=== PATIENT | male | born 1950 | race Caucasian/White ===

== ENCOUNTER 2021-10-31 22:20 | Observation (INO) | payer MEDICARE ==
[2021-10-31] MEDS ORDERED: MORPHINE SULFATE 4 MG INJ IV ONE (22:45)
[2021-10-31] MEDS ORDERED: Zofran 4 MG/2 ML VIAL IV ONE (22:45)
[2021-10-31] MEDS ORDERED: Sodium Chloride 0.9% 1000 ML 1,000 ML IV STA (22:45)
--- NOTE | 2021-10-31 22:48 | ERPHSYRPT ---
- History of Present Illness Time Seen by Provider: 10/31/21 22:22 Historian: patient Exam Limitations: no limitations Patient Subjective Stated Complaint: "my stomach hurts." Triage Nursing Assessment: acute onset periumbilical pain. Initial onset was in july. Recently began treatment for BPH. Reported three episodes of vomitin tonight. Last BM 10/30/21 Physician History: 71 years old male with history of peripheral vascular disease, tobacco abuse presented in the ER with chief complaint of lower abdominal pain sudden onset few hours ago with associated nausea and 3 episodes of nonprojectile, nonbilious vomiting. Patient reports having similar episodes for the last few months and have been seen in [place] where he is from, was found to have some prostate issues. Denies any fever or chills. Timing/Duration: hour(s) (4), constant, sudden, worse Activities at Onset: rest Quality: cramping, sharpness Abdominal Pain Onset Location: RLQ, LLQ, periumbilical, suprapubic Pain Radiation: no radiation Severity of Pain-Max: severe Severity of Pain-Current: moderate Modifying Factors: Improves With: nothing Associated Symptoms: nausea, vomiting Previous symptoms: same symptoms as today Allergies/Adverse Reactions: No Known Drug Allergies Allergy (Unverified 10/31/21 22:28) Home Medications: Aspirin 81 gm Chew [Baby Aspirin 81 mg Chew] 81 mg PO DAILY 10/31/21 [History] Finasteride 5 mg [Proscar 5 MG] 5 gm PO DAILY 10/31/21 [History] Hydrocodone/Acetaminophen [Hydrocodone-Acetamin 7.5-325] 1 tab PO TID PRN 10/31/21 [History] Lisinopril 10 mg [Zestril 10 MG] 10 mg PO DAILY 10/31/21 [History] Simvastatin 40 mg PO HS 10/31/21 [History] Tamsulosin HCl 0.4 mg [Flomax 0.4 MG] 0.4 mg PO DAILY 10/31/21 [History] Hx Tetanus, Diphtheria Vaccination/Date Given: Yes Hx Influenza Vaccination/Date Given: Yes Hx Pneumococcal Vaccination/Date Given: Yes Travel Risk - International Travel Have you traveled outside of the country in past 3 weeks: No - Coronavirus Screening Are you exhibiting any of the following symptoms?: No Close contact with a COVID-19 positive Pt in past 14-21 Days: No - Vaccine Status Have you recieved a Covid-19 vaccination: Yes Compliance Auditor: Moderna - Vaccination Dates Date of 2cond Vaccination (if applicable): 03/2021 - Review of Systems Constitutional: No Symptoms Eyes: No Symptoms Ears, Nose, & Throat: No Symptoms Respiratory: No Symptoms Cardiac: No Symptoms Abdominal/Gastrointestinal: Abdominal Pain, Nausea, Vomiting, No Diarrhea, No Constipation Genitourinary Symptoms: No Symptoms Musculoskeletal: Back Pain Skin: No Symptoms Neurological: No Symptoms Psychological: No Symptoms Endocrine: No Symptoms Hematologic/Lymphatic: No Symptoms Immunological/Allergic: No Symptoms - Past Medical History Pertinent Past Medical History: Yes Cardiac History: High Cholesterol, Hypertension, Peripheral Vascular Disease Male Reproductive Disorders: Prostate Problems - Past Surgical History Past Surgical History: Yes Cardiac: Vascular Surgery - Social History Smoking Status: Current every day smoker How long have you smoked: 0.5 Exposure to second hand smoke: No Drug Use: none Patient Lives Alone: Yes - Nursing Vital Signs Nursing Vital Signs: Initial Vital Signs Temperature 97.7 F 10/31/21 22:20 Pulse Rate 92 H 10/31/21 22:20 Respiratory Rate 18 10/31/21 22:20 Blood Pressure 162/86 10/31/21 22:20 O2 Sat by Pulse Oximetry 100 10/31/21 22:20 Pain Scale Pain Intensity 7 - Physical Exam General Appearance: no apparent distress, alert Eye Exam: PERRL/EOMI, eyes nml inspection Ears, Nose, Throat Exam: normal ENT inspection, TMs normal, pharynx normal Neck Exam: normal inspection, non-tender, supple, full range of motion Respiratory Exam: normal breath sounds, lungs clear Cardiovascular Exam: regular rate/rhythm, normal heart sounds Gastrointestinal/Abdomen Exam: soft, tenderness (Lower abdomen with diffuse guarding but no rebound tenderness), guarding, No normal bowel sounds Back Exam: normal inspection, normal range of motion, No CVA tenderness Extremity Exam: normal inspection, normal range of motion Neurologic Exam: alert, oriented x 3, cooperative Skin Exam: normal color SpO2 Interpretation: normal SpO2: 100 O2 Delivery: Room Air Ordered Tests: Active Orders 24 hr Category Date Time Status IV Insertion STAT Care 10/31/21 22:45 Active NPO (ED) STAT Care 10/31/21 22:45 Active ABDOMEN AND PELVIS W CONTRAST [CT] Stat Exams 10/31/21 22:46 Taken CBC W DIFF Stat Lab 10/31/21 22:57 Completed CMP Stat Lab 10/31/21 22:57 Completed LIPASE Stat Lab 10/31/21 22:57 Completed Lactic Acid Stat Lab 10/31/21 23:55 Completed UA W/RFX UR CULTURE Stat Lab 11/01/21 00:36 Completed Medication Summary Generic Name Dose Route Start Last Admin Trade Name Joesph PRN Reason Stop Dose Admin Sodium Chloride 1,000 mls @ 125 mls/hr 11/01/21 01:45 11/01/21 01:39 Sodium Chloride 0.9% 1000 Ml IV 12/01/21 01:44 125 mls/hr .Q8H TAYLER Administration Discontinued Medications Generic Name Dose Route Start Last Admin Trade Name Joesph PRN Reason Stop Dose Admin Hydromorphone HCl 1 mg 10/31/21 23:29 10/31/21 23:32 Hydromorphone 1 Mg/1ml Inj 1 Mg/Ml Syringe IV 10/31/21 23:30 1 mg STAT ONE Administration Hydromorphone HCl Confirm 10/31/21 23:31 Hydromorphone 1 Mg/1ml Inj 1 Mg/Ml Syringe Administered 10/31/21 23:32 Dose 1 mg .ROUTE .STK-MED ONE Hydromorphone HCl 1 mg 11/01/21 01:26 11/01/21 01:39 Hydromorphone 1 Mg/1ml Inj 1 Mg/Ml Syringe IV 11/01/21 01:27 1 mg STAT ONE Administration Hydromorphone HCl Confirm 11/01/21 01:35 Hydromorphone 1 Mg/1ml Inj 1 Mg/Ml Syringe Administered 11/01/21 01:36 Dose 1 mg .ROUTE .STK-MED ONE Sodium Chloride 1,000 mls @ 999 mls/hr 10/31/21 22:45 11/01/21 00:30 Sodium Chloride 0.9% 1000 Ml IV 10/31/21 23:45 Infused .Q1H1M STA Infusion Sodium Chloride Confirm 10/31/21 22:49 Sodium Chloride 0.9% 1000 Ml Administered 10/31/21 22:50 Dose 1,000 mls @ ud .ROUTE .STK-MED ONE Piperacillin Sod/Tazobactam 100 mls @ 200 mls/hr 11/01/21 00:51 11/01/21 00:59 Sod 3.375 gm/ Sodium Chloride IV 11/01/21 01:20 200 mls/hr STAT ONE Administration Sodium Chloride Confirm 11/01/21 00:55 Sodium Chloride 100ml Mini-Bag Plus Administered 11/01/21 00:56 Dose 100 mls @ ud IV .STK-MED ONE Sodium Chloride Confirm 11/01/21 01:35 Sodium Chloride 0.9% 1000 Ml Administered 11/01/21 01:36 Dose 1,000 mls @ ud .ROUTE .STK-MED ONE Morphine Sulfate 4 mg 10/31/21 22:45 10/31/21 22:51 Morphine Sulfate 4 Mg/Ml Injection IV 10/31/21 22:46 4 mg STAT ONE Administration Morphine Sulfate Confirm 10/31/21 22:49 Morphine Sulfate 4 Mg/Ml Injection Administered 10/31/21 22:50 Dose 4 mg .ROUTE .STK-MED ONE Ondansetron HCl 4 mg 10/31/21 22:45 10/31/21 22:51 Ondansetron Hcl 4 Mg/2 Ml Vial IV 10/31/21 22:46 4 mg STAT ONE Administration Ondansetron HCl Confirm 10/31/21 22:49 Ondansetron Hcl 4 Mg/2 Ml Vial Administered 10/31/21 22:50 Dose 4 mg .ROUTE .STK-MED ONE Piperacillin Sod/Tazobactam Sod Confirm 11/01/21 00:54 Piperacillin/Tazobactam Sodium 3.375 Gm Vial Administered 11/01/21 00:55 Dose 3.375 gm IV .STK-MED ONE Lab/Rad Data: Laboratory Result Diagrams 10/31/21 22:57 10/31/21 22:57 Laboratory Results 11/01/21 10/31/21 10/31/21 Range/Units 00:36 23:55 22:57 WBC (4.0-10.5) K/mm3 RBC (4.1-5.6) M/mm3 Hgb (12.5-18.0) gm/dl Hct (42-50) % MCV (78-100) fl MCH (26-32) pg MCHC (32-36) g/dl RDW (11.5-14.0) % Plt Count (150-450) K/mm3 MPV (7.5-11.0) fl Gran % (36.0-66.0) % Eos # (Auto) (0-0.5) Absolute Lymphs (auto) (1.0-4.6) Absolute Monos (auto) (0.0-1.3) Lymphocytes % (24.0-44.0) % Monocytes % (0.0-12.0) % Eosinophils % (0.00-5.0) % Basophils % (0.0-0.4) % Absolute Granulocytes (1.4-6.9) Basophils # (0-0.4) Sodium 138 (137-145) mmol/L Potassium 4.5 (3.5-5.1) mmol/L Chloride 104 (98-107) mmol/L Carbon Dioxide 21 L (22-30) mmol/L Anion Gap 16.8 H (5-15) MEQ/L BUN 23 H (9-20) mg/dL Creatinine 1.23 (0.66-1.25) mg/dL Estimated GFR > 60.0 ML/MIN Glucose 103 (74-106) mg/dL Lactic Acid 1.6 (0.4-2.0) Calcium 10.1 (8.4-10.2) mg/dL Total Bilirubin 0.70 (0.2-1.3) mg/dL AST 30 (17-59) U/L ALT 17 (0-50) U/L Alkaline Phosphatase 81 (38-126) U/L Serum Total Protein 8.0 (6.3-8.2) g/dL Albumin 4.9 (3.5-5.0) g/dL Lipase 270 (23-300) U/L Urine Color YELLOW (YELLOW) Urine Appearance CLEAR (CLEAR) Urine pH 5.0 (5-6) Ur Specific [place] 1.015 (1.005-1.025) Urine Protein NEGATIVE (Negative) Urine Ketones TRACE (NEGATIVE) Urine Blood SMALL (0-5) Stas/ul Urine Nitrite NEGATIVE (NEGATIVE) Urine Bilirubin NEGATIVE (NEGATIVE) Urine Urobilinogen NEGATIVE (0-1) mg/dL Ur Leukocyte Esterase NEGATIVE (NEGATIVE) Urine WBC (Auto) NONE (0-5) /HPF Urine RBC (Auto) 0-2 (0-2) /HPF U Epithel Cells (Auto) NONE (FEW) /HPF Urine Bacteria (Auto) NONE (NEGATIVE) /HPF Urine Mucus (Auto) SLIGHT (NEGATIVE) /HPF Urine Culture Reflexed NO (NO) Urine Glucose NEGATIVE (NEGATIVE) mg/dL Slides for Path Review 10/31/21 Range/Units 22:57 WBC 21.5 H (4.0-10.5) K/mm3 RBC 4.23 (4.1-5.6) M/mm3 Hgb 13.2 (12.5-18.0) gm/dl Hct 39.8 L (42-50) % MCV 94.1 (78-100) fl MCH 31.2 (26-32) pg MCHC 33.2 (32-36) g/dl RDW 13.8 (11.5-14.0) % Plt Count 242 (150-450) K/mm3 MPV 11.1 H (7.5-11.0) fl Gran % 81.2 H (36.0-66.0) % Eos # (Auto) 0.23 (0-0.5) Absolute Lymphs (auto) 2.23 (1.0-4.6) Absolute Monos (auto) 1.55 H (0.0-1.3) Lymphocytes % 10.4 L (24.0-44.0) % Monocytes % 7.2 (0.0-12.0) % Eosinophils % 1.1 (0.00-5.0) % Basophils % 0.1 (0.0-0.4) % Absolute Granulocytes 17.47 H (1.4-6.9) Basophils # 0.03 (0-0.4) Sodium (137-145) mmol/L Potassium (3.5-5.1) mmol/L Chloride (98-107) mmol/L Carbon Dioxide (22-30) mmol/L Anion Gap (5-15) MEQ/L BUN (9-20) mg/dL Creatinine (0.66-1.25) mg/dL Estimated GFR ML/MIN Glucose (74-106) mg/dL Lactic Acid (0.4-2.0) Calcium (8.4-10.2) mg/dL Total Bilirubin (0.2-1.3) mg/dL AST (17-59) U/L ALT (0-50) U/L Alkaline Phosphatase (38-126) U/L Serum Total Protein (6.3-8.2) g/dL Albumin (3.5-5.0) g/dL Lipase (23-300) U/L Urine Color (YELLOW) Urine Appearance (CLEAR) Urine pH (5-6) Ur Specific Pullman (1.005-1.025) Urine Protein (Negative) Urine Ketones (NEGATIVE) Urine Blood (0-5) Stas/ul Urine Nitrite (NEGATIVE) Urine Bilirubin (NEGATIVE) Urine Urobilinogen (0-1) mg/dL Ur Leukocyte Esterase (NEGATIVE) Urine WBC (Auto) (0-5) /HPF Urine RBC (Auto) (0-2) /HPF U Epithel Cells (Auto) (FEW) /HPF Urine Bacteria (Auto) (NEGATIVE) /HPF Urine Mucus (Auto) (NEGATIVE) /HPF Urine Culture Reflexed (NO) Urine Glucose (NEGATIVE) mg/dL Slides for Path Review YES - Progress Progress: improved, pain not gone completely, re-examined Progress Note: Is given fluid bolus and symptomatic treatment for pain. Has a white count of 21, grossly unremarkable chemistries. No UTI. Obtain CT with contrast which showed acute appendicitis. Given a dose of Zosyn. We will keep patient n.p.o. Discussed with Dr. Ronaldo Hernandez, reviewed history, work-up and patient is being admitted for surgical intervention only in the morning. Discussed with Dr. Black and patient is admitted in consultation with general surgery. 11/01/21 01:48 Will see patient in: hospital (observation) Counseled pt/family regarding: lab results, diagnosis, need for follow-up, rad results - Departure Departure Disposition: Observation Clinical Impression: Acute appendicitis Qualifiers: Acute appendicitis type: with localized peritonitis Appendicitis gangrene presence: without gangrene Appendicitis perforation presence: without perforation Appendicitis abscess presence: without abscess Qualified Code(s): K35.30 - Acute appendicitis with localized peritonitis, without perforation or gangrene Condition: Stable Critical Care Time: No Referrals: DOCTOR,NO FAMILY [Primary Care Provider] - Follow up/PCP as directed
[2021-10-31] MEDS ORDERED: MORPHINE SULFATE 4 MG INJ ONE (22:49)
[2021-10-31] MEDS ORDERED: Zofran 4 MG/2 ML VIAL ONE (22:49)
[2021-10-31] MEDS ORDERED: Sodium Chloride 0.9% 1000 ML 1,000 ML ONE (22:49)
[2021-10-31 23:01] LABS: Absolute Neutrophil Ct (ANC) 17.47 (1.4-6.9); BASOPHIL % 0.1 % (0.0-0.4); Basophil (Absolute #) 0.03 (0-0.4); Eosinophil % 1.1 % (0.00-5.0); Eosinophil (Absolute #) 0.23 (0-0.5); Hematocrit 39.8 % (42-50); Hemoglobin 13.2 gm/dl (12.5-18.0); Lymphocyte (Absolute #) 2.23 (1.0-4.6); Lymphocytes % 10.4 % (24.0-44.0); Mean Cell Volume 94.1 fl (78-100); Mean Corpuscular Hemoglobin 31.2 pg (26-32); Mean Corpuscular Hgb Concent. 33.2 g/dl (32-36); Mean Platelet Volume 11.1 fl (7.5-11.0); Monocyte (Absolute #) 1.55 (0.0-1.3); Monocytes % 7.2 % (0.0-12.0); Neutrophil % 81.2 % (36.0-66.0); Platelet Count 242 K/mm3 (150-450); Red Blood Count 4.23 M/mm3 (4.1-5.6); Red Cell Distribution Width 13.8 % (11.5-14.0); White Blood Count 21.5 K/mm3 (4.0-10.5)
[2021-10-31 23:11] LABS: ALBUMIN 4.9 g/dL (3.5-5.0); ALKALINE PHOSPHATASE 81 U/L (38-126); ANION GAP 16.8 MEQ/L (5-15); BLOOD UREA NITROGEN 23 mg/dL (9-20); CHLORIDE 104 mmol/L (98-107); Calcium 10.1 mg/dL (8.4-10.2); Carbon Dioxide 21 mmol/L (22-30); Creatinine 1 1.23 mg/dL (0.66-1.25); EST GLOMERULAR FILTRATION RATE > 60.0 ML/MIN; Glucose 103 mg/dL (74-106); LIPASE 270 U/L (23-300); Potassium 4.5 mmol/L (3.5-5.1); SGOT/AST 30 U/L (17-59); SGPT/ALT 17 U/L (0-50); SODIUM 138 mmol/L (137-145)
[2021-10-31] MEDS ORDERED: Hydromorphone 1 mg/ml Injection IV ONE (23:29)
[2021-10-31] MEDS ORDERED: Hydromorphone 1 mg/ml Injection ONE (23:31)
[2021-11-01 00:20] LABS: Slide Review 1 YES
[2021-11-01 00:34] LABS: Appearance CLEAR (CLEAR); Bilirubin NEGATIVE (NEGATIVE); Blood SMALL Ery/ul (0-5); Glucose NEGATIVE (NEGATIVE); Ketones TRACE (NEGATIVE); Leukocyte Esterase NEGATIVE (NEGATIVE); Mucus SLIGHT /HPF (NEGATIVE); Nitrite NEGATIVE (NEGATIVE); Protein,Urine Dip NEGATIVE (Negative); RBC 0-2 /HPF (0-2); Specific Gravity 1.015 (1.005-1.025); Urobilinogen NEGATIVE mg/dL (0-1)
[2021-11-01] MEDS ORDERED: Zosyn 3.375 GM Vial 3.375 GM in Sodium Chloride 100ML MINI-BAG PLUS 100 ML IV ONE (00:51)
[2021-11-01] MEDS ORDERED: Zosyn 3.375 GM Vial IV ONE ×2 (00:54→05:48)
[2021-11-01] MEDS ORDERED: Sodium Chloride 100ML MINI-BAG PLUS 100 ML IV ONE ×2 (00:55→05:48)
[2021-11-01] MEDS ORDERED: Hydromorphone 1 mg/ml Injection IV ONE (01:26)
[2021-11-01] MEDS ORDERED: Hydromorphone 1 mg/ml Injection ONE (01:35)
[2021-11-01] MEDS ORDERED: Sodium Chloride 0.9% 1000 ML 1,000 ML ONE (01:35)
[2021-11-01] MEDS: Sodium Chloride 0.9% 1000 ML 1,000 ML IV SCH ×2 (01:39→08:44)
[2021-11-01 02:41] LABS: INFLUENZA A NEGATIVE (NEGATIVE); INFLUENZA B NEGATIVE (NEGATIVE); RESPIRATORY SYNCTIAL VIRUS NEGATIVE (Negative); SARS-CoV-2 Xpert Express NEGATIVE (NEGATIVE)
[2021-11-01] MEDS ORDERED: DUONEB 0.5-3 MG/3 ml Neb IH PRN (03:46)
[2021-11-01] MEDS ORDERED: Zofran 4 MG/2 ML VIAL IV PRN (03:46)
[2021-11-01] MEDS: Zosyn 3.375 GM Vial 3.375 GM in Sodium Chloride 100ML MINI-BAG PLUS 100 ML IV SCH ×3 (06:02→17:00)
[2021-11-01 06:59] LABS: Absolute Neutrophil Ct (ANC) 10.33 (1.4-6.9); BASOPHIL % 0.3 % (0.0-0.4); Basophil (Absolute #) 0.04 (0-0.4); Eosinophil % 0.7 % (0.00-5.0); Hematocrit 32.8 % (42-50); Hemoglobin 10.6 gm/dl (12.5-18.0); Lymphocytes % 13.3 % (24.0-44.0); Mean Cell Volume 95.6 fl (78-100); Mean Corpuscular Hemoglobin 30.9 pg (26-32); Mean Corpuscular Hgb Concent. 32.3 g/dl (32-36); Mean Platelet Volume 10.2 fl (7.5-11.0); Monocyte (Absolute #) 1.23 (0.0-1.3); Monocytes % 9.1 % (0.0-12.0); Neutrophil % 76.6 % (36.0-66.0); Platelet Count 202 K/mm3 (150-450); Red Blood Count 3.43 M/mm3 (4.1-5.6); Red Cell Distribution Width 13.7 % (11.5-14.0); White Blood Count 13.5 K/mm3 (4.0-10.5)
[2021-11-01 07:20] LABS: ALBUMIN 3.4 g/dL (3.5-5.0); ALKALINE PHOSPHATASE 56 U/L (38-126); ANION GAP 8.8 MEQ/L (5-15); BLOOD UREA NITROGEN 18 mg/dL (9-20); CHLORIDE 111 mmol/L (98-107); Calcium 8.5 mg/dL (8.4-10.2); Carbon Dioxide 22 mmol/L (22-30); Creatinine 1 1.17 mg/dL (0.66-1.25); EST GLOMERULAR FILTRATION RATE > 60.0 ML/MIN; Glucose 97 mg/dL (74-106); Potassium 3.9 mmol/L (3.5-5.1); SGOT/AST 19 U/L (17-59); SGPT/ALT 11 U/L (0-50); SODIUM 138 mmol/L (137-145)
--- NOTE | 2021-11-01 07:53 | PCM.SSS ---
History of Present Illness - Chief Complaint Chief Complaint: Acute appendicitis History of Present Illness: is a 71 year old male who developed pain in the lower abdomen yesterday afternoon, progressively worsened and caused vomiting. Came to ER last night and CT revealed acute appendicitis. he has a history of hypertension and rheumatoid arthiritis with chronic pain. - Review of Systems Constitutional: No Fever, No Chills Respiratory: No Cough, No Short Of Breath Cardiac: No Chest Pain, No Edema, No Syncope Abdominal/Gastrointestinal: Abdominal Pain, Nausea, Vomiting, No Diarrhea, No Constipation, No Hematemesis, No Hematochezia Genitourinary Symptoms: No Dysuria Skin: No Rash Neurological: No Dizziness, No Focal Weakness, No Sensory Changes All Other Systems: Reviewed and Negative Medications & Allergies Home Medications: Home Medication List Aspirin 81 gm Chew [Baby Aspirin 81 mg Chew] 81 mg PO DAILY 10/31/21 [History Confirmed 11/01/21] Finasteride 5 mg [Proscar 5 MG] 5 mg PO DAILY 10/31/21 [History Confirmed 11/01/21] Hydrocodone/Acetaminophen [Hydrocodone-Acetamin 7.5-325] 7.5 tab PO TID PRN 10/31/21 [History Confirmed 11/01/21] Lisinopril 10 mg [Zestril 10 MG] 10 mg PO DAILY 10/31/21 [History Confirmed 11/01/21] Simvastatin 40 mg PO HS 10/31/21 [History Confirmed 11/01/21] Tamsulosin HCl 0.4 mg [Flomax 0.4 MG] 0.4 mg PO DAILY 10/31/21 [History Confirmed 11/01/21] Latanoprost/Pf [Latanoprost 0.005% Eye Drop] 1 drop OP HS 11/01/21 [History Confirmed 11/01/21] Timolol Maleate 0.5% Eye [Timoptic 0.5% 5 ml Ophthalmic] 1 drop OP DAILY 11/01/21 [History Confirmed 11/01/21] Allergies/Adverse Reactions: Allergies Allergy/AdvReac Type Severity Reaction Status Date / Time No Known Drug Allergies Allergy Unverified 10/31/21 22:28 - Past Medical History Past Medical History: Yes ENT History: Cataracts, Glaucoma Cardiac History: High Cholesterol, Hypertension, Peripheral Vascular Disease Respiratory History: No Pertinent History Musculoskelatal History: Rheumatoid Arthritis GI Medical History: Hernia History: No Pertinent History Pyscho-Social History: No Pertinent History Male Reproductive Disorders: Prostate Problems - Past Surgical History Past Surgical History: Yes Neuro Surgical History: No Pertinent History Cardiac History: Vascular Surgery Respiratory Surgery: No Pertinent History GI Surgical History: No Pertinent History Genitourinary Surgical Hx: No Pertinent History Musculskeletal Surgical Hx: No Pertinent History Male Surgical History: No Pertinent History - Social History Smoking Status: Current every day smoker How long have you smoked: 50 years Exposure to second hand smoke: Yes Alcohol: Daily Drug Use: none - Physical Exam Vital Signs: Vital Signs - 24 hr Temp Pulse Resp BP Pulse Ox 11/01/21 07:28 97.8 F 73 16 108/55 94 L 11/01/21 07:20 97.8 F 73 16 108/55 94 L 11/01/21 04:03 97.7 F 82 16 133/66 98 11/01/21 04:00 97.4 F 76 16 148/67 97 11/01/21 03:05 82 16 133/66 98 11/01/21 02:13 91 H 17 155/69 98 11/01/21 01:51 100 11/01/21 01:00 85 18 147/71 96 11/01/21 00:28 96 H 18 157/76 97 10/31/21 23:24 91 H 20 153/73 98 10/31/21 22:20 97.7 F 92 H 18 162/86 100 General Appearance: no apparent distress, alert Neurologic Exam: alert, oriented x 3, cooperative Respiratory Exam: normal breath sounds, lungs clear, No respiratory distress Cardiovascular Exam: regular rate/rhythm, normal heart sounds, normal peripheral pulses Gastrointestinal/Abdomen Exam: tenderness (lower abdomen), No distention, No mass, No guarding, No rebound Extremity Exam: normal inspection, normal range of motion, pelvis stable Skin Exam: normal color, warm, dry, No rash Results - Labs Lab/Micro Results: Lab Results-Last 24 Hours 10/31/21 10/31/21 10/31/21 Range/Units 22:57 22:57 23:55 WBC 21.5 H (4.0-10.5) K/mm3 RBC 4.23 (4.1-5.6) M/mm3 Hgb 13.2 (12.5-18.0) gm/dl Hct 39.8 L (42-50) % MCV 94.1 (78-100) fl MCH 31.2 (26-32) pg MCHC 33.2 (32-36) g/dl RDW 13.8 (11.5-14.0) % Plt Count 242 (150-450) K/mm3 MPV 11.1 H (7.5-11.0) fl Gran % 81.2 H (36.0-66.0) % Eos # (Auto) 0.23 (0-0.5) Absolute Lymphs (auto) 2.23 (1.0-4.6) Absolute Monos (auto) 1.55 H (0.0-1.3) Lymphocytes % 10.4 L (24.0-44.0) % Monocytes % 7.2 (0.0-12.0) % Eosinophils % 1.1 (0.00-5.0) % Basophils % 0.1 (0.0-0.4) % Absolute Granulocytes 17.47 H (1.4-6.9) Basophils # 0.03 (0-0.4) Sodium 138 (137-145) mmol/L Potassium 4.5 (3.5-5.1) mmol/L Chloride 104 (98-107) mmol/L Carbon Dioxide 21 L (22-30) mmol/L Anion Gap 16.8 H (5-15) MEQ/L BUN 23 H (9-20) mg/dL Creatinine 1.23 (0.66-1.25) mg/dL Estimated GFR > 60.0 ML/MIN Glucose 103 (74-106) mg/dL Lactic Acid 1.6 (0.4-2.0) Calcium 10.1 (8.4-10.2) mg/dL Total Bilirubin 0.70 (0.2-1.3) mg/dL AST 30 (17-59) U/L ALT 17 (0-50) U/L Alkaline Phosphatase 81 (38-126) U/L Serum Total Protein 8.0 (6.3-8.2) g/dL Albumin 4.9 (3.5-5.0) g/dL Lipase 270 (23-300) U/L Urine Color (YELLOW) Urine Appearance (CLEAR) Urine pH (5-6) Ur Specific [place] (1.005-1.025) Urine Protein (Negative) Urine Ketones (NEGATIVE) Urine Blood (0-5) Stas/ul Urine Nitrite (NEGATIVE) Urine Bilirubin (NEGATIVE) Urine Urobilinogen (0-1) mg/dL Ur Leukocyte Esterase (NEGATIVE) Urine WBC (Auto) (0-5) /HPF Urine RBC (Auto) (0-2) /HPF U Epithel Cells (Auto) (FEW) /HPF Urine Bacteria (Auto) (NEGATIVE) /HPF Urine Mucus (Auto) (NEGATIVE) /HPF Urine Culture Reflexed (NO) Urine Glucose (NEGATIVE) mg/dL Influenza Type A Ag (NEGATIVE) Influenza Type B Ag (NEGATIVE) RSV (PCR) (Negative) SARS-CoV-2 (PCR) (NEGATIVE) Slides for Path Review YES 11/01/21 11/01/21 11/01/21 Range/Units 00:36 01:55 06:43 WBC 13.5 H (4.0-10.5) K/mm3 RBC 3.43 L (4.1-5.6) M/mm3 Hgb 10.6 L (12.5-18.0) gm/dl Hct 32.8 L (42-50) % MCV 95.6 (78-100) fl MCH 30.9 (26-32) pg MCHC 32.3 (32-36) g/dl RDW 13.7 (11.5-14.0) % Plt Count 202 (150-450) K/mm3 MPV 10.2 (7.5-11.0) fl Gran % 76.6 H (36.0-66.0) % Eos # (Auto) 0.10 (0-0.5) Absolute Lymphs (auto) 1.80 (1.0-4.6) Absolute Monos (auto) 1.23 (0.0-1.3) Lymphocytes % 13.3 L (24.0-44.0) % Monocytes % 9.1 (0.0-12.0) % Eosinophils % 0.7 (0.00-5.0) % Basophils % 0.3 (0.0-0.4) % Absolute Granulocytes 10.33 H (1.4-6.9) Basophils # 0.04 (0-0.4) Sodium (137-145) mmol/L Potassium (3.5-5.1) mmol/L Chloride (98-107) mmol/L Carbon Dioxide (22-30) mmol/L Anion Gap (5-15) MEQ/L BUN (9-20) mg/dL Creatinine (0.66-1.25) mg/dL Estimated GFR ML/MIN Glucose (74-106) mg/dL Lactic Acid (0.4-2.0) Calcium (8.4-10.2) mg/dL Total Bilirubin (0.2-1.3) mg/dL AST (17-59) U/L ALT (0-50) U/L Alkaline Phosphatase (38-126) U/L Serum Total Protein (6.3-8.2) g/dL Albumin (3.5-5.0) g/dL Lipase (23-300) U/L Urine Color YELLOW (YELLOW) Urine Appearance CLEAR (CLEAR) Urine pH 5.0 (5-6) Ur Specific [place] 1.015 (1.005-1.025) Urine Protein NEGATIVE (Negative) Urine Ketones TRACE (NEGATIVE) Urine Blood SMALL (0-5) Stas/ul Urine Nitrite NEGATIVE (NEGATIVE) Urine Bilirubin NEGATIVE (NEGATIVE) Urine Urobilinogen NEGATIVE (0-1) mg/dL Ur Leukocyte Esterase NEGATIVE (NEGATIVE) Urine WBC (Auto) NONE (0-5) /HPF Urine RBC (Auto) 0-2 (0-2) /HPF U Epithel Cells (Auto) NONE (FEW) /HPF Urine Bacteria (Auto) NONE (NEGATIVE) /HPF Urine Mucus (Auto) SLIGHT (NEGATIVE) /HPF Urine Culture Reflexed NO (NO) Urine Glucose NEGATIVE (NEGATIVE) mg/dL Influenza Type A Ag NEGATIVE (NEGATIVE) Influenza Type B Ag NEGATIVE (NEGATIVE) RSV (PCR) NEGATIVE (Negative) SARS-CoV-2 (PCR) NEGATIVE (NEGATIVE) Slides for Path Review 11/01/21 Range/Units 06:43 WBC (4.0-10.5) K/mm3 RBC (4.1-5.6) M/mm3 Hgb (12.5-18.0) gm/dl Hct (42-50) % MCV (78-100) fl MCH (26-32) pg MCHC (32-36) g/dl RDW (11.5-14.0) % Plt Count (150-450) K/mm3 MPV (7.5-11.0) fl Gran % (36.0-66.0) % Eos # (Auto) (0-0.5) Absolute Lymphs (auto) (1.0-4.6) Absolute Monos (auto) (0.0-1.3) Lymphocytes % (24.0-44.0) % Monocytes % (0.0-12.0) % Eosinophils % (0.00-5.0) % Basophils % (0.0-0.4) % Absolute Granulocytes (1.4-6.9) Basophils # (0-0.4) Sodium 138 (137-145) mmol/L Potassium 3.9 (3.5-5.1) mmol/L Chloride 111 H (98-107) mmol/L Carbon Dioxide 22 (22-30) mmol/L Anion Gap 8.8 (5-15) MEQ/L BUN 18 (9-20) mg/dL Creatinine 1.17 (0.66-1.25) mg/dL Estimated GFR > 60.0 ML/MIN Glucose 97 (74-106) mg/dL Lactic Acid (0.4-2.0) Calcium 8.5 D (8.4-10.2) mg/dL Total Bilirubin 0.60 (0.2-1.3) mg/dL AST 19 (17-59) U/L ALT 11 (0-50) U/L Alkaline Phosphatase 56 (38-126) U/L Serum Total Protein 6.0 L (6.3-8.2) g/dL Albumin 3.4 L (3.5-5.0) g/dL Lipase (23-300) U/L Urine Color (YELLOW) Urine Appearance (CLEAR) Urine pH (5-6) Ur Specific [place] (1.005-1.025) Urine Protein (Negative) Urine Ketones (NEGATIVE) Urine Blood (0-5) Stas/ul Urine Nitrite (NEGATIVE) Urine Bilirubin (NEGATIVE) Urine Urobilinogen (0-1) mg/dL Ur Leukocyte Esterase (NEGATIVE) Urine WBC (Auto) (0-5) /HPF Urine RBC (Auto) (0-2) /HPF U Epithel Cells (Auto) (FEW) /HPF Urine Bacteria (Auto) (NEGATIVE) /HPF Urine Mucus (Auto) (NEGATIVE) /HPF Urine Culture Reflexed (NO) Urine Glucose (NEGATIVE) mg/dL Influenza Type A Ag (NEGATIVE) Influenza Type B Ag (NEGATIVE) RSV (PCR) (Negative) SARS-CoV-2 (PCR) (NEGATIVE) Slides for Path Review - Radiology Impressions Radiology Exams & Impressions: Radiology Procedures Category Date Time Status ABDOMEN AND PELVIS W CONTRAST [CT] Stat Exams 10/31/21 22:46 Taken Assessment/Plan (1) Acute appendicitis Current Visit: Yes Status: Acute Qualifiers: Acute appendicitis type: with localized peritonitis Appendicitis gangrene presence: without gangrene Appendicitis perforation presence: without perforation Appendicitis abscess presence: without abscess Qualified Code(s): K35.30 - Acute appendicitis with localized peritonitis, without perforation or gangrene Assessment & Plan: surgery consulted, will go for lap appy this am. NPO and on zosyn currently. Code(s): K35.80 - UNSPECIFIED ACUTE APPENDICITIS (2) Essential hypertension Current Visit: Yes Status: Acute Assessment & Plan: continue lisinopril home dose. Code(s): I10 - ESSENTIAL (PRIMARY) HYPERTENSION Hospital Summary - Vitals & Intake/Output Vital Signs: Vital Signs Temperature 97.8 F 11/01/21 07:28 Pulse Rate 73 11/01/21 07:28 Respiratory Rate 16 11/01/21 07:28 Blood Pressure 108/55 11/01/21 07:28 O2 Sat by Pulse Oximetry 94 L 11/01/21 07:28 Intake & Output: Intake & Output 10/29/21 10/30/21 10/31/21 11/01/21 11:59 11:59 11:59 11:59 Output Total 450 Balance -450 Weight 65.7 kg - Lab Result Diagrams: 11/01/21 06:43 11/01/21 06:43 Lab Results-Last 24 Hrs: Lab Results-Last 24 Hours 10/31/21 10/31/21 10/31/21 Range/Units 22:57 22:57 23:55 WBC 21.5 H (4.0-10.5) K/mm3 RBC 4.23 (4.1-5.6) M/mm3 Hgb 13.2 (12.5-18.0) gm/dl Hct 39.8 L (42-50) % MCV 94.1 (78-100) fl MCH 31.2 (26-32) pg MCHC 33.2 (32-36) g/dl RDW 13.8 (11.5-14.0) % Plt Count 242 (150-450) K/mm3 MPV 11.1 H (7.5-11.0) fl Gran % 81.2 H (36.0-66.0) % Eos # (Auto) 0.23 (0-0.5) Absolute Lymphs (auto) 2.23 (1.0-4.6) Absolute Monos (auto) 1.55 H (0.0-1.3) Lymphocytes % 10.4 L (24.0-44.0) % Monocytes % 7.2 (0.0-12.0) % Eosinophils % 1.1 (0.00-5.0) % Basophils % 0.1 (0.0-0.4) % Absolute Granulocytes 17.47 H (1.4-6.9) Basophils # 0.03 (0-0.4) Sodium 138 (137-145) mmol/L Potassium 4.5 (3.5-5.1) mmol/L Chloride 104 (98-107) mmol/L Carbon Dioxide 21 L (22-30) mmol/L Anion Gap 16.8 H (5-15) MEQ/L BUN 23 H (9-20) mg/dL Creatinine 1.23 (0.66-1.25) mg/dL Estimated GFR > 60.0 ML/MIN Glucose 103 (74-106) mg/dL Lactic Acid 1.6 (0.4-2.0) Calcium 10.1 (8.4-10.2) mg/dL Total Bilirubin 0.70 (0.2-1.3) mg/dL AST 30 (17-59) U/L ALT 17 (0-50) U/L Alkaline Phosphatase 81 (38-126) U/L Serum Total Protein 8.0 (6.3-8.2) g/dL Albumin 4.9 (3.5-5.0) g/dL Lipase 270 (23-300) U/L Urine Color (YELLOW) Urine Appearance (CLEAR) Urine pH (5-6) Ur Specific [place] (1.005-1.025) Urine Protein (Negative) Urine Ketones (NEGATIVE) Urine Blood (0-5) Stas/ul Urine Nitrite (NEGATIVE) Urine Bilirubin (NEGATIVE) Urine Urobilinogen (0-1) mg/dL Ur Leukocyte Esterase (NEGATIVE) Urine WBC (Auto) (0-5) /HPF Urine RBC (Auto) (0-2) /HPF U Epithel Cells (Auto) (FEW) /HPF Urine Bacteria (Auto) (NEGATIVE) /HPF Urine Mucus (Auto) (NEGATIVE) /HPF Urine Culture Reflexed (NO) Urine Glucose (NEGATIVE) mg/dL Influenza Type A Ag (NEGATIVE) Influenza Type B Ag (NEGATIVE) RSV (PCR) (Negative) SARS-CoV-2 (PCR) (NEGATIVE) Slides for Path Review YES 11/01/21 11/01/21 11/01/21 Range/Units 00:36 01:55 06:43 WBC 13.5 H (4.0-10.5) K/mm3 RBC 3.43 L (4.1-5.6) M/mm3 Hgb 10.6 L (12.5-18.0) gm/dl Hct 32.8 L (42-50) % MCV 95.6 (78-100) fl MCH 30.9 (26-32) pg MCHC 32.3 (32-36) g/dl RDW 13.7 (11.5-14.0) % Plt Count 202 (150-450) K/mm3 MPV 10.2 (7.5-11.0) fl Gran % 76.6 H (36.0-66.0) % Eos # (Auto) 0.10 (0-0.5) Absolute Lymphs (auto) 1.80 (1.0-4.6) Absolute Monos (auto) 1.23 (0.0-1.3) Lymphocytes % 13.3 L (24.0-44.0) % Monocytes % 9.1 (0.0-12.0) % Eosinophils % 0.7 (0.00-5.0) % Basophils % 0.3 (0.0-0.4) % Absolute Granulocytes 10.33 H (1.4-6.9) Basophils # 0.04 (0-0.4) Sodium (137-145) mmol/L Potassium (3.5-5.1) mmol/L Chloride (98-107) mmol/L Carbon Dioxide (22-30) mmol/L Anion Gap (5-15) MEQ/L BUN (9-20) mg/dL Creatinine (0.66-1.25) mg/dL Estimated GFR ML/MIN Glucose (74-106) mg/dL Lactic Acid (0.4-2.0) Calcium (8.4-10.2) mg/dL Total Bilirubin (0.2-1.3) mg/dL AST (17-59) U/L ALT (0-50) U/L Alkaline Phosphatase (38-126) U/L Serum Total Protein (6.3-8.2) g/dL Albumin (3.5-5.0) g/dL Lipase (23-300) U/L Urine Color YELLOW (YELLOW) Urine Appearance CLEAR (CLEAR) Urine pH 5.0 (5-6) Ur Specific [place] 1.015 (1.005-1.025) Urine Protein NEGATIVE (Negative) Urine Ketones TRACE (NEGATIVE) Urine Blood SMALL (0-5) Stas/ul Urine Nitrite NEGATIVE (NEGATIVE) Urine Bilirubin NEGATIVE (NEGATIVE) Urine Urobilinogen NEGATIVE (0-1) mg/dL Ur Leukocyte Esterase NEGATIVE (NEGATIVE) Urine WBC (Auto) NONE (0-5) /HPF Urine RBC (Auto) 0-2 (0-2) /HPF U Epithel Cells (Auto) NONE (FEW) /HPF Urine Bacteria (Auto) NONE (NEGATIVE) /HPF Urine Mucus (Auto) SLIGHT (NEGATIVE) /HPF Urine Culture Reflexed NO (NO) Urine Glucose NEGATIVE (NEGATIVE) mg/dL Influenza Type A Ag NEGATIVE (NEGATIVE) Influenza Type B Ag NEGATIVE (NEGATIVE) RSV (PCR) NEGATIVE (Negative) SARS-CoV-2 (PCR) NEGATIVE (NEGATIVE) Slides for Path Review 11/01/21 Range/Units 06:43 WBC (4.0-10.5) K/mm3 RBC (4.1-5.6) M/mm3 Hgb (12.5-18.0) gm/dl Hct (42-50) % MCV (78-100) fl MCH (26-32) pg MCHC (32-36) g/dl RDW (11.5-14.0) % Plt Count (150-450) K/mm3 MPV (7.5-11.0) fl Gran % (36.0-66.0) % Eos # (Auto) (0-0.5) Absolute Lymphs (auto) (1.0-4.6) Absolute Monos (auto) (0.0-1.3) Lymphocytes % (24.0-44.0) % Monocytes % (0.0-12.0) % Eosinophils % (0.00-5.0) % Basophils % (0.0-0.4) % Absolute Granulocytes (1.4-6.9) Basophils # (0-0.4) Sodium 138 (137-145) mmol/L Potassium 3.9 (3.5-5.1) mmol/L Chloride 111 H (98-107) mmol/L Carbon Dioxide 22 (22-30) mmol/L Anion Gap 8.8 (5-15) MEQ/L BUN 18 (9-20) mg/dL Creatinine 1.17 (0.66-1.25) mg/dL Estimated GFR > 60.0 ML/MIN Glucose 97 (74-106) mg/dL Lactic Acid (0.4-2.0) Calcium 8.5 D (8.4-10.2) mg/dL Total Bilirubin 0.60 (0.2-1.3) mg/dL AST 19 (17-59) U/L ALT 11 (0-50) U/L Alkaline Phosphatase 56 (38-126) U/L Serum Total Protein 6.0 L (6.3-8.2) g/dL Albumin 3.4 L (3.5-5.0) g/dL Lipase (23-300) U/L Urine Color (YELLOW) Urine Appearance (CLEAR) Urine pH (5-6) Ur Specific [place] (1.005-1.025) Urine Protein (Negative) Urine Ketones (NEGATIVE) Urine Blood (0-5) Stas/ul Urine Nitrite (NEGATIVE) Urine Bilirubin (NEGATIVE) Urine Urobilinogen (0-1) mg/dL Ur Leukocyte Esterase (NEGATIVE) Urine WBC (Auto) (0-5) /HPF Urine RBC (Auto) (0-2) /HPF U Epithel Cells (Auto) (FEW) /HPF Urine Bacteria (Auto) (NEGATIVE) /HPF Urine Mucus (Auto) (NEGATIVE) /HPF Urine Culture Reflexed (NO) Urine Glucose (NEGATIVE) mg/dL Influenza Type A Ag (NEGATIVE) Influenza Type B Ag (NEGATIVE) RSV (PCR) (Negative) SARS-CoV-2 (PCR) (NEGATIVE) Slides for Path Review - Radiology Exams Ordered Rad Exams-Entire Visit: Radiology Procedures Category Date Time Status ABDOMEN AND PELVIS W CONTRAST [CT] Stat Exams 10/31/21 22:46 Taken - Discharge Disposition: Home, Self-Care Condition: Stable Prescriptions: Continue Simvastatin 40 mg PO HS Tamsulosin HCl 0.4 mg [Flomax 0.4 MG] 0.4 mg PO DAILY Aspirin 81 gm Chew [Baby Aspirin 81 mg Chew] 81 mg PO DAILY Lisinopril 10 mg [Zestril 10 MG] 10 mg PO DAILY Finasteride 5 mg [Proscar 5 MG] 5 mg PO DAILY Hydrocodone/Acetaminophen [Hydrocodone-Acetamin 7.5-325] 7.5 tab PO TID PRN PRN Reason: Pain Timolol Maleate 0.5% Eye [Timoptic 0.5% 5 ml Ophthalmic] 1 drop OP DAILY Latanoprost/Pf [Latanoprost 0.005% Eye Drop] 1 drop OP HS Follow up with: DOCTOR,NO FAMILY [Primary Care Provider] -
--- NOTE | 2021-11-01 08:12 | XRAY ---
Indication: Abdomen pain, nausea, and vomiting. Multiple contiguous axial images obtained through the abdomen and pelvis using 80 cc Isovue 370 contrast. Comparison: None Lung bases demonstrates bibasilar subsegmental atelectasis/scarring. No infiltrate or effusion. Heart not enlarged. Noncontrasted stomach and bowel loops appear nonobstructed. Appendix appears prominent up to 11 mm in diameter with minimal periappendiceal stranding favoring acute appendicitis. No free fluid/air. Right kidney demonstrates 2 cysts, largest upper pole measuring 4.5 cm. Markedly distended urinary bladder concerning for outlet obstruction versus neurogenic bladder. Tiny splenic calcified granulomas. Remaining liver, gallbladder, pancreas, spleen adrenal glands, kidneys, ureters, and bladder are unremarkable. Heavy scattered vascular calcifications without AAA. Osseous structures intact with mild/moderate degenerative changes throughout the spine. Mild double curvature scoliosis. Impression: 1. CT findings as detailed favoring acute appendicitis. No complications. 2. Distended urinary bladder. Rule out outlet obstruction versus neurogenic bladder. 3. Incidental right renal cysts, chronic bony findings, and old granulomatous disease. Comment: Preliminary interpretation made by [facility]. No critical discrepancy.
[2021-11-01] MEDS: PROTONIX 40 MG IV IV SCH (08:44)
[2021-11-01] MEDS: Hydromorphone 1 mg/ml Injection IV PRN ×2 (08:48→13:41)
[2021-11-01] MEDS ORDERED: MEFOXIN 2 GM PREMIX** 2 GM/50 ML ML IV SCH (09:00)
[2021-11-01] MEDS ORDERED: Sodium Chloride 0.9% 1000 ML 1,000 ML IV SCH (09:00)
[2021-11-01] MEDS: Flomax 0.4 MG PO SCH ×2 (09:11→12:24)
[2021-11-01] MEDS: Zestril 10 MG PO SCH ×2 (09:11→12:24)
[2021-11-01] MEDS: Proscar 5 MG PO SCH (09:11)
[2021-11-01] MEDS ORDERED: MEDICATION INTERVENTION MC SCH (09:15)
[2021-11-01] MEDS ORDERED: Lactated Ringers 1,000 ML IV SCH ×2 (09:30→13:00)
[2021-11-01] MEDS ORDERED: TIMOPTIC 0.5% 5 ML OPHTHALMIC OP SCH (10:00)
[2021-11-01] MEDS ORDERED: Sensorcaine 0.25% 10 ML ONE (10:06)
[2021-11-01] MEDS ORDERED: Versed 2 MG/2 ML Injection ONE (10:30)
[2021-11-01] MEDS ORDERED: SUBLIMAZE 250 MCG/5 ML ONE (10:30)
[2021-11-01] MEDS ORDERED: Quelicin Fliptop 200 MG/10 ML ONE (10:31)
[2021-11-01] MEDS ORDERED: Zemuron 100 MG/10 ML ONE (10:31)
[2021-11-01] MEDS ORDERED: DIPRIVAN 200 MG/20 ML IV ONE (10:31)
[2021-11-01] MEDS ORDERED: Zofran 4 MG/2 ML VIAL ONE (11:19)
[2021-11-01] MEDS ORDERED: BRIDION 200MG/2ML IV ONE (11:20)
[2021-11-01] MEDS ORDERED: DUONEB 0.5-3 MG/3 ml Neb IH ONE (11:40)
[2021-11-01] MEDS ORDERED: SUBLIMAZE 100 MCG/2 ML ONE (11:43)
[2021-11-01] MEDS ORDERED: Lactated Ringers 1,000 ML IV ONE (11:56)
[2021-11-01] MEDS ORDERED: TORAdol 30 mg Injection IV ONE (12:21)
[2021-11-01] MEDS ORDERED: TYLENOL 325 MG PO PRN (12:51)
[2021-11-01] MEDS ORDERED: MORPHINE SULFATE 4 MG INJ IV PRN (12:52)
[2021-11-01] MEDS ORDERED: FEVERALL 650 MG RC PRN (12:52)
[2021-11-01] MEDS ORDERED: Zofran 4 MG/2 ML VIAL IVIM PRN (13:00)
[2021-11-01] MEDS: TIMOPTIC 0.5% 5 ML OPHTHALMIC OP SCH (13:59)
[2021-11-01] MEDS: NORCO 5/325 MG PO PRN ×2 (16:10→20:41)
[2021-11-01] MEDS ORDERED: ZOCOR 20MG PO SCH (22:00)
[2021-11-01] MEDS ORDERED: NON-FORMULARY ITEM (Latanoprost/Pf [Latanoprost 0.005% Eye Drop] 7.5 ML Drops) OP SCH (22:00)
[2021-11-01] MEDS ORDERED: Xalatan OP SCH (22:00)
[2021-11-01] MEDS ORDERED: NON-FORMULARY ITEM (Simvastatin [Simvastatin] 40 MG Tablet) PO SCH (22:00)
[2021-11-02] MEDS: Zosyn 3.375 GM Vial 3.375 GM in Sodium Chloride 100ML MINI-BAG PLUS 100 ML IV SCH ×3 (00:11→11:29)
[2021-11-02] MEDS: NORCO 5/325 MG PO PRN ×2 (02:17→11:29)
[2021-11-02 06:21] LABS: Hematocrit 31.5 % (42-50); Hemoglobin 9.9 gm/dl (12.5-18.0); Mean Cell Volume 98.1 fl (78-100); Mean Corpuscular Hemoglobin 30.8 pg (26-32); Mean Corpuscular Hgb Concent. 31.4 g/dl (32-36); Mean Platelet Volume 11.3 fl (7.5-11.0); Platelet Count 180 K/mm3 (150-450); Red Blood Count 3.21 M/mm3 (4.1-5.6); Red Cell Distribution Width 14.1 % (11.5-14.0); White Blood Count 9.5 K/mm3 (4.0-10.5)
[2021-11-02 07:01] LABS: ANION GAP 7.6 MEQ/L (5-15); Creatinine 1 1.42 mg/dL (0.66-1.25); EST GLOMERULAR FILTRATION RATE 52.4 ML/MIN
[2021-11-02 07:59] VITALS: BP 128/59; PULSE 69; O2SAT 96
--- NOTE | 2021-11-02 08:24 | PCM.DS ---
Discharge Summary Date of Admission: 11/01/21 03:43 Admitting Physician: MAVERICK HAAS Primary Care Provider: NO FAMILY DOCTOR Allergies Allergies No Known Drug Allergies Allergy (Unverified 10/31/21 22:28) Hospital Summary - Hospital Course Hospital Course: patient arrived on 11/01, found to have acute appendicitis in ER. Dr Rylan Hernandez performed surgery on 11/01, he is tolerating po. pain is controlled and he has no problems or concerns, wbc normal on exam today. - Vitals & Intake/Output Vital Signs: Vital Signs Temperature 98.5 F 11/02/21 07:58 Pulse Rate 69 11/02/21 07:58 Respiratory Rate 16 11/02/21 07:58 Blood Pressure 128/59 11/02/21 07:58 O2 Sat by Pulse Oximetry 96 11/02/21 07:58 Intake & Output: Intake & Output 10/30/21 10/31/21 11/01/21 11/02/21 11:59 11:59 11:59 11:59 Intake Total 0 1440 Output Total 800 Balance -800 1440 Weight 65.7 kg - Lab Result Diagrams: 11/02/21 06:16 11/02/21 06:16 Lab Results-Last 24 Hrs: Lab Results-Last 24 Hours 11/01/21 11/02/21 11/02/21 Range/Units 20:59 06:16 06:16 WBC 9.5 (4.0-10.5) K/mm3 RBC 3.21 L (4.1-5.6) M/mm3 Hgb 9.9 L (12.5-18.0) gm/dl Hct 31.5 L (42-50) % MCV 98.1 (78-100) fl MCH 30.8 (26-32) pg MCHC 31.4 L (32-36) g/dl RDW 14.1 H (11.5-14.0) % Plt Count 180 (150-450) K/mm3 MPV 11.3 H (7.5-11.0) fl Sodium 138 (137-145) mmol/L Potassium 4.0 (3.5-5.1) mmol/L Chloride 110 H (98-107) mmol/L Carbon Dioxide 24 (22-30) mmol/L Anion Gap 7.6 (5-15) MEQ/L BUN 16 (9-20) mg/dL Creatinine 1.42 H (0.66-1.25) mg/dL Estimated GFR 52.4 ML/MIN Glucose 90 (74-106) mg/dL POC Glucometer 108 H (74 to 106) mg/dL Calcium 8.0 L (8.4-10.2) mg/dL - Radiology Exams Ordered Rad Exams-Entire Visit: Radiology Procedures Category Date Time Status ABDOMEN AND PELVIS W CONTRAST [CT] Stat Exams 10/31/21 22:46 Completed - Procedures and Test Procedures and Tests throughout Hospitalization: Therapy Orders & Screens 11/01/21 11:40 Respiratory Therapy Assessment ONCE Comment: Diagnosis: Acute appendicitis 11/01/21 12:30 EKG ROUTINE Comment: Diagnosis: Acute appendicitis Discharge Exam General Appearance: no apparent distress, alert Respiratory Exam: normal breath sounds, lungs clear, No respiratory distress Cardiovascular Exam: regular rate/rhythm, normal heart sounds Gastrointestinal/Abdomen Exam: soft, other (port sites well approximated, abdomen soft and benign), No tenderness, No mass Extremity Exam: normal inspection, normal range of motion Skin Exam: normal color, warm, dry Wound Assessment: Skin/Wound Assessment Wound/Incision Assessment Start: 11/01/21 13:57 Text: Status: Active Freq: Q8H Protocol: Document 11/02/21 05:59 AW (Rec: 11/02/21 06:00 AW [id number]) Wound/Incision Assessment Anterior Abdomen Wound Assessment Shift Assessment Wound Type Puncture Wound Stage Non Pressure Wound Dressing Status Dry & Intact Drainage Amount None Drainage Odor None/Absent Comment laparoscopic appendectomy band aids dry and intact. Wound Photo Photo Taken No Final Diagnosis/Problem List - Final Discharge Diagnosis/Problem (1) Acute appendicitis Current Visit: Yes Status: Acute Assessment & Plan: home when ok with surgery. Code(s): K35.80 - UNSPECIFIED ACUTE APPENDICITIS (2) Essential hypertension Current Visit: Yes Status: Acute Code(s): I10 - ESSENTIAL (PRIMARY) HYPERTENSION - Discharge Disposition: Home, Self-Care Condition: Stable Prescriptions: Continue Simvastatin 40 mg PO HS Tamsulosin HCl 0.4 mg [Flomax 0.4 MG] 0.4 mg PO DAILY Aspirin 81 gm Chew [Baby Aspirin 81 mg Chew] 81 mg PO DAILY Lisinopril 10 mg [Zestril 10 MG] 10 mg PO DAILY Finasteride 5 mg [Proscar 5 MG] 5 mg PO DAILY Hydrocodone/Acetaminophen [Hydrocodone-Acetamin 7.5-325] 7.5 tab PO TID PRN PRN Reason: Pain Timolol Maleate 0.5% Eye [Timoptic 0.5% 5 ml Ophthalmic] 1 drop OP DAILY Latanoprost/Pf [Latanoprost 0.005% Eye Drop] 1 drop OP HS Instructions: Appendectomy, Laparoscopic Surgery Follow up with: RYLAN HERNANDEZ MD [ACTIVE STAFF] - Call for Appointment
[2021-11-02] MEDS: Flomax 0.4 MG PO SCH (10:23)
[2021-11-02] MEDS: PROTONIX 40 MG IV IV SCH (10:23)
[2021-11-02] MEDS: Zestril 10 MG PO SCH (10:23)
[2021-11-02] MEDS: TIMOPTIC 0.5% 5 ML OPHTHALMIC OP SCH (10:24)
[2021-11-02] MEDS: Proscar 5 MG PO SCH (10:24)
--- NOTE | 2021-11-02 12:49 | CONS ---
CONSULT DATE: 11/01/2021 REASON FOR CONSULT: Vomiting. HISTORY: The patient presents for onset of right lower quadrant pain starting yesterday afternoon. He had some nausea with it. He denies fever, chills or shortness of breath. He denies any prior episodes. PAST MEDICAL HISTORY: Hypertension. PAST SURGICAL HISTORY: None. MEDICATIONS: Reviewed EMR. ALLERGIES: NKDA. SOCIAL HISTORY: No tobacco. FAMILY HISTORY: Noncontributory. PHYSICAL EXAMINATION: GENERAL: No acute distress. HEENT: Sclera nonicteric. Extraocular movements intact. NECK: Supple. No JVD. CHEST: Nonlabored breathing. ABDOMEN: Soft, nondistended, tender to palpation in the right lower quadrant with some voluntary guarding. EXTREMITIES: No peripheral edema. NEURO: Awake, alert, oriented. PSYCH: Appropriate mood and affect. LAB DATA AND TESTS: CT scan showed acute appendicitis. ASSESSMENT: Acute appendicitis. PLAN: Plan for laparoscopic possible open appendectomy. Risks and benefits discussed in depth with the patient and the patient would like to proceed.
--- NOTE | 2021-11-02 13:02 | OP ---
SURGERY DATE/TIME: 11/01/2021 1050 PREOPERATIVE DIAGNOSIS: Acute appendicitis. POSTOPERATIVE DIAGNOSIS: Acute nonperforated appendicitis. PROCEDURE: Laparoscopic appendectomy. SURGEON: Ronaldo Hernandez M.D. ANESTHESIA: General. ESTIMATED BLOOD LOSS: Less than 5 cc. COMPLICATIONS: None. SPECIMEN: Appendix. FINDINGS: Acute nonperforated early appendicitis. INDICATION: This patient presents with signs and symptoms and CT scan evidence acute appendicitis. After discussing risks and benefits of the procedure, the patient wished to proceed. DESCRIPTION OF PROCEDURE: The patient was brought to the operating room, placed supine on operating table, placed under general anesthesia. Left arm was tucked. The abdomen was prepped and draped in sterile fashion. Incision made at the umbilicus. The Veress needle inserted. Pneumoperitoneum obtained. A 5 mm optical trocar inserted and under direct visualization and the abdomen was entered. Area on entry was inspected. There did not appear to be any inadvertent injury. Additional 12 mm left lower quadrant and 5 mm suprapubic trocars were placed into position. The appendix was freed up with minor adhesions to the side wall and lifted up. A window was created in between the base of the appendix and the mesoappendix. The mesoappendix transected with the [place] LigaSure. The appendix was inflamed but nonperforated. A small amount of fluid was suctioned out of the pelvis. The appendix was taken from its junction with the cecum with 45 EndoGIA white stapler. It was removed with a bag. The port site was closed with 0 Vicryl suture and suture passer and the field was pristine. The remaining trocars were removed under direct visualization. The abdomen desufflated. The wound injected with 0.25% Marcaine. Wounds closed with 4-0 Monocryl sutures. Steri-Strips and dressings were applied. The patient was recovered and taken to postoperative anesthesia care unit.
== END 2021-11-02 12:40 | disposition home or self-care (01) ==
LOC: ED 22:20 → MED SURG 11-01 03:43 → MERGE 11-01 03:43
PROVIDERS: ADMIT Family Medicine; ATTEND Family Medicine
DX: K35.30 Acute appendicitis with localized peritonitis, without perforation or gangrene (principal); R11.2 Nausea with vomiting, unspecified; I10 Essential (primary) hypertension; E78.00 Pure hypercholesterolemia, unspecified; F17.200 Nicotine dependence, unspecified, uncomplicated; Z79.899 Other long term (current) drug therapy; Z20.828 Contact with and (suspected) exposure to other viral communicable diseases
CPT/HCPCS: 0241U; 36000; 36415; 44970; 74177; 80048; 80053; 81001; 82947; 83605; 83690; 85025; 85027; 93005; 94640; 96374; 96375; 99284; 93268; 99140; J0330; J0694; J1170; J1885; J2250; J2270; J2405; J2704; J3010; A9270-GY; G0378